=== PATIENT | male | born 1970 | race Caucasian/White ===

== ENCOUNTER → 2017-11-20 | Outpatient (REF) | payer BC ==
[~2017-11-20] MED LIST: OXYC20TA86 PO; PER PO
== END ==
LOC: ZZSENDIN 15:44
PROVIDERS: ATTEND Physician Assistant
DX: Z02.79 Encounter for issue of other medical certificate (principal)
CPT/HCPCS: 81001

== ENCOUNTER 2018-01-29 19:17 | Emergency (ER) | payer BC ==
[2018-01-29] MEDS ORDERED: LISI-362 PO (19:24)
--- NOTE | 2018-01-29 19:34 | ER Report ---
History and Physical Time Seen By MD: 19:33 Hx. of Stated Complaint: PATIENT GOT HIS RIGHT PINKY FINGER IN A ROPE, AND RIPPED THE TIP OF FINGER ALMOST COMPLETELY OFF. INDEX FINGER IS DEFORMED. HPI/ROS CHIEF COMPLAINT: Right hand injury HISTORY OF PRESENT ILLNESS: This is a 47-year-old male who presents to the emergency department for a right hand injury while roping. Patient states he was roping just prior to arrival his hand got trapped on the saddle horn by the rope and amputated the distal part of his right pinky and what appears to be a dislocated index finger. Pain to the right and middle finger no obvious deformities. The thumb is pain-free. CMS intact. Patient has no other complaints , no nausea, vomiting, diarrhea, aches, chills, chest pain or shortness of breath. Did not hit his head no loss of consciousness. REVIEW OF SYSTEMS: Constitutional: No fever, no chills. Eyes: No discharge. ENT: No sore throat. Cardiovascular: No chest pain, no palpitations. Respiratory: No cough, no shortness of breath. Gastrointestinal: No abdominal pain, no vomiting. Genitourinary: No hematuria. Musculoskeletal: As above. Skin: As above. Neurological: No headache. Allergies: Coded Allergies: No Known Drug Allergies (Verified , 01/29/18) Home Meds Active Scripts Hydrocodone Bit/Acetaminophen (HYDROCODON-ACETAMINOPHEN 5-325) 1 Each Tablet, 1 EACH PO Q4-6H Y for PAIN, #12 TAB 0 Refills Prov:DORIE MCGARRY [facility]- 01/29/18 Cephalexin 500 Mg Tab (KEFLEX 500 MG TAB) 500 Mg Tablet, 500 MG PO Q6H for 10 Days, #38 TAB 0 Refills Prov:DORIE MCGARRY [facility]- 01/29/18 Reported Medications Lisinopril (LISINOPRIL) 10 Mg Tablet, 10 MG PO QDAY, TAB 01/29/18 Discontinued Reported Medications Oxycodone Hcl (Oxycontin) 20 Mg Tab.sr.12h, 20 MG PO BID, #20 This is an extended release pain medication. Take twice a day, 12 hours apart. 02/19/08 Oxycodone/Acetaminophen (OXYCODONE/ACETAMINOPHEN 5MG/325 MG) 5 Mg/325 Mg Tab, 1 - 2 TAB PO Q4-6H 1, #40 This is the faster acting pain medication. Take as needed every 4-6 hours for pain. 02/19/08 Past Medical/Surgical History Patient has a past medical and surgical history of left and right arm fractures , left leg fracture, left hip fracture, shattered right foot, multiple orthopedic surgeries. Reviewed Nurses Notes: Yes Constitutional Vital Sign - Last 24 Hours 01/29/18 19:20 Pulse 78 Resp 16 B/P (MAP) 136/102 Pulse Ox 96 O2 Delivery Room Air Intake and Output 01/29/18 01/29/18 01/30/18 15:00 23:00 07:00 Intake Total 50 ml Balance 50 ml Physical Exam General Appearance: The patient is alert, has no immediate need for airway protection and no signs of toxicity. Eyes: Pupils equal and round no pallor or injection. ENT, Mouth: Mucous membranes are moist. Respiratory: There are no retractions, lungs are clear to auscultation. Cardiovascular: Regular rate and rhythm. Gastrointestinal: Abdomen is soft and non tender, no masses, bowel sounds normal. Neurological: Alert and oriented 4. Moving all extremity. Following all commands. No focal neuro deficits. Skin: Warm and dry, no rashes. Musculoskeletal: Neck is supple non tender. Extremities amputated distal end of the right pinky, with a small flap of tissue hanging from the injury. Bleeding controlled. Deformed right index finger , fixed in place at the PIP angled toward the thumb. Rope gamble to the distal end of the ring and middle fingers. No thumb involvement. Sensation intact to all fingers. DIFFERENTIAL DIAGNOSIS: After history and physical exam differential diagnosis was considered for amputation, dislocation, contusion, abrasion and fracture. Medical Decision Making Data Points Result Diagram: 01/29/18200001/29/182000 Laboratory Hematology Test 01/29/18 20:01 Red Blood Count 5.41 M/uL (4.00-5.60) Mean Corpuscular Volume 88.6 fL (80.0-96.0) Mean Corpuscular Hemoglobin 30.6 pg (26.0-33.0) Mean Corpuscular Hemoglobin Concent 34.5 g/dL (32.0-36.0) Red Cell Distribution Width 14.4 % (11.5-14.5) Mean Platelet Volume 7.2 fL (7.2-11.1) Neutrophils (%) (Auto) 73.6 % (39.4-72.5) Lymphocytes (%) (Auto) 14.6 % (17.6-49.6) Monocytes (%) (Auto) 7.0 % (4.1-12.4) Eosinophils (%) (Auto) 1.9 % (0.4-6.7) Basophils (%) (Auto) 2.9 % (0.3-1.4) Nucleated RBC Relative Count (auto) 0.0 /100WBC Neutrophils # (Auto) 6.6 K/uL (2.0-7.4) Lymphocytes # (Auto) 1.3 K/uL (1.3-3.6) Monocytes # (Auto) 0.6 K/uL (0.3-1.0) Eosinophils # (Auto) 0.2 K/uL (0.0-0.5) Basophils # (Auto) 0.3 K/uL (0.0-0.1) Nucleated RBC Absolute Count (auto) 0.00 K/uL Peripheral Blood Smear Yes Y/N Sodium Level 141 mmol/L (137-145) Potassium Level 4.0 mmol/L (3.5-5.0) Chloride Level 100 mmol/L (98-107) Carbon Dioxide Level 26 mmol/L (22-30) Blood Urea Nitrogen 14 mg/dl (9-21) Creatinine 1.00 mg/dl (0.66-1.25) Glomerular Filtration Rate Calc > 60.0 Random Glucose 95 mg/dl (75-110) Calcium Level 8.9 mg/dl (8.4-10.2) Total Bilirubin 0.4 mg/dl (0.2-1.3) Aspartate Amino Transf (AST/SGOT) 24 U/L (0-35) Alanine Aminotransferase (ALT/SGPT) 45 U/L (0-56) Alkaline Phosphatase 65 U/L (0-126) Total Protein 7.2 g/dl (6.3-8.2) Albumin 4.3 g/dl (3.5-5.0) Chemistry Test 01/29/18 20:01 White Blood Count 8.9 k/uL (4.5-11.0) Red Blood Count 5.41 M/uL (4.00-5.60) Hemoglobin 16.5 g/dL (14.0-18.0) Hematocrit 47.9 % (42.0-52.0) Mean Corpuscular Volume 88.6 fL (80.0-96.0) Mean Corpuscular Hemoglobin 30.6 pg (26.0-33.0) Mean Corpuscular Hemoglobin Concent 34.5 g/dL (32.0-36.0) Red Cell Distribution Width 14.4 % (11.5-14.5) Platelet Count 227 K/uL (150-450) Mean Platelet Volume 7.2 fL (7.2-11.1) Neutrophils (%) (Auto) 73.6 % (39.4-72.5) Lymphocytes (%) (Auto) 14.6 % (17.6-49.6) Monocytes (%) (Auto) 7.0 % (4.1-12.4) Eosinophils (%) (Auto) 1.9 % (0.4-6.7) Basophils (%) (Auto) 2.9 % (0.3-1.4) Nucleated RBC Relative Count (auto) 0.0 /100WBC Neutrophils # (Auto) 6.6 K/uL (2.0-7.4) Lymphocytes # (Auto) 1.3 K/uL (1.3-3.6) Monocytes # (Auto) 0.6 K/uL (0.3-1.0) Eosinophils # (Auto) 0.2 K/uL (0.0-0.5) Basophils # (Auto) 0.3 K/uL (0.0-0.1) Nucleated RBC Absolute Count (auto) 0.00 K/uL Peripheral Blood Smear Yes Y/N Glomerular Filtration Rate Calc > 60.0 Calcium Level 8.9 mg/dl (8.4-10.2) Total Bilirubin 0.4 mg/dl (0.2-1.3) Aspartate Amino Transf (AST/SGOT) 24 U/L (0-35) Alanine Aminotransferase (ALT/SGPT) 45 U/L (0-56) Alkaline Phosphatase 65 U/L (0-126) Total Protein 7.2 g/dl (6.3-8.2) Albumin 4.3 g/dl (3.5-5.0) EKG/Imaging Imaging Location: [facility] - [place] Patient: René Esparza : 1970 Visit/Account:[id number] Date of Sevice: 01/29/2018 INDICATION: hand injury, amputated small finger. DATE: 01/29/2018 8:28 PM. TECHNIQUE: HAND COMPLETE RIGHT COMPARISON: Wrist radiographs February 18, 2008 FINDINGS: An oblique fractures of the second proximal phalanx is comminuted and displaced. A fracture of the distal phalanx of the middle finger is comminuted and displaced with intra-articular extension. Fracture of the distal phalanx of the fifth digit is comminuted and displaced, and the tuft has been avulsed/ amputated. IMPRESSION: 1. Fractures of the second proximal phalanx, third distal phalanx, and fifth distal phalanx as above. Report Dictated By: Mercedes May MD at 01/29/2018 8:28 PM Report E-Signed By: Mercedes May MD at 01/29/2018 8:31 PM WSN:[id number] ED Course/Re-evaluation Clinical Indication for ER IV: IV Access ED Course The patient was admitted to a room. A history physical were obtained. Differential diagnoses were considered. An IV was started. A CBC, CMP were obtained. Lab studies unremarkable. Patient was given 4 mg IV Zofran, 4 mg IV morphine, 1 mg IV Dilaudid with minimal relief. Patient's fingers were digitally blocked using 0.5% bupivacaine with epinephrine. Fractures of the second proximal phalanx, third distal phalanx, and fifth distal phalanx, open and amputated. The patient was given 2gm of ceftriaxone IV. Dr. Choudhury did come in for evaluation, he did irrigate and close the amputated small finger, reduced the index finger fracture and splinted the finger. The patient tolerated well. he was sent home with two take home packs of hydrocodone and zofran as well as Keflex. A hydrocodone and Keflex prescription was sent to the patient's pharmacy. The patient was doing well at the time of discharge. She was instructed to follow-up with Dr. Fermin Thursday or Thursday. Patient was also instructed return to the emergency department for any other concerns or worsening symptoms. Patient had no other questions or concerns at this time and was discharged home. 01/29/2018 8:51:15 pm I did speak with cl Uribe patient relations representative. He did view the images and is coming in to evaluate the patient. 01/29/2018 9:14:[address] Choudhury is here for small finger closure and reduction of the index finger. Decision to Disposition Date: Jan 29, 2018 Decision to Disposition Time: 22:14 Depart Departure Latest Vital Signs Vital Signs Date Time Temp Pulse Resp B/P (MAP) Pulse Ox O2 Delivery O2 Flow Rate FiO2 01/29/18 19:20 78 16 136/102 96 Room Air Impression: Primary Impression: Finger amputation, traumatic Additional Impressions: Fracture of phalanx of index finger Fracture of distal phalanx of finger of left hand Condition: Improved Referrals: COREY CHOU DO (PCP) ANGELY FERMIN MD 2 Days New Scripts Hydrocodone Bit/Acetaminophen (HYDROCODON-ACETAMINOPHEN 5-325) 1 Each Tablet 1 EACH PO Q4-6H Y for PAIN, #12 TAB 0 Refills Prov: DORIE MCGARRY [facility]- 01/29/18 Cephalexin 500 Mg Tab (KEFLEX 500 MG TAB) 500 Mg Tablet 500 MG PO Q6H for 10 Days, #38 TAB 0 Refills Prov: DORIE MCGARRY [facility]- 01/29/18 Patient Instructions: Finger Amputation (ED), Finger Fracture (ED) Additional Instructions: Drink plenty of water. Get plenty of rest. Take Ibuprofen or Tylenol if not taking hydrocodone, do not take Tylenol with the hydrocodone. Take Hydrocodone for severe pain. Take the Keflex 500mg tablets every 6 hours for 10 days. Take Zofran as needed for nausea. Follow up with Dr. Fermin Thursday or Thursday. Keep the splint on until you follow up. Return to the ED for any other concerns or worsening symptoms. Problem Qualifiers Primary Impression: Finger amputation, traumatic Encounter type: initial encounter Qualified Codes: S68.119A - Complete traumatic metacarpophalangeal amputation of unspecified finger, initial encounter Additional Impressions: Fracture of phalanx of index finger Encounter type: initial encounter Fracture type: closed Phalanx: middle Fracture alignment: displaced Laterality: right Qualified Codes: S62.620A - Displaced fracture of middle phalanx of right index finger, initial encounter for closed fracture DORIE MCGARRY [facility] Jan 29, 2018 19:34
[2018-01-29] MEDS ORDERED: DIPHTH/TETANUS/ACEL. PERTUSSIS IM ONLY ONE (19:40)
[2018-01-29] MEDS ORDERED: MORPHINE 4 MG/ML SDV IVP ONE (19:40)
[2018-01-29] MEDS ORDERED: ceFAZolin(*) 2GM/D5W 50ML 50 ML IVPB ONE (19:40)
[2018-01-29] MEDS ORDERED: ONDANSETRON 4 MG/2 ML VIAL IVP ONE (19:40)
[2018-01-29 20:13] LABS: PLATELET COUNT, AUTOMATED 227 K/uL (150-450)
[2018-01-29] MEDS ORDERED: HYDROmorphone* 1 MG/ML 1 MG/ML ML IVP ONE (20:20)
--- NOTE | 2018-01-29 20:34 | RADIOLOGY IMAGING REPORT ---
FACILITY: [facility] PATIENT NAME: René Esparza : 1970 MR: [id number] V: [id number] EXAM DATE: ORDERING PHYSICIAN: DORIE MCGARRY TECHNOLOGIST: Location: [facility] [place] Patient: René Esparza : 1970 Visit/Account:[id number] Date of Sevice: 01/29/2018 INDICATION: hand injury, amputated small finger. DATE: 01/29/2018 8:28 PM. TECHNIQUE: HAND COMPLETE RIGHT COMPARISON: Wrist radiographs February 18, 2008 FINDINGS: An oblique fractures of the second proximal phalanx is comminuted and displaced. A fracture of the distal phalanx of the middle finger is comminuted and displaced with intra-articular extensio n. Fracture of the distal phalanx of the fifth digit is comminuted and displaced, and the tuft has be en avulsed/amputated. IMPRESSION: 1. Fractures of the second proximal phalanx, third distal phalanx, and fifth distal phalanx as above. Report Dictated By: Mercedes May MD at 01/29/2018 8:28 PM Report E-Signed By: Mercedes May MD at 01/29/2018 8:31 PM WSN:[id number]
[2018-01-29] MEDS ORDERED: CEPH500T7 PO ×2 (22:09→22:35)
[2018-01-29] MEDS ORDERED: HYDR-385 PO ×2 (22:09→22:35)
[2018-01-29] MEDS ORDERED: ONDANSETRON 4 MG ODT TH SL ONE (22:15)
[2018-01-29] MEDS ORDERED: ACET/HYDROC 5/325MG TH ER ONLY 2 TAB/BOTTLE PO ONE (22:15)
[2018-01-29] MEDS ORDERED: CEPHALEXIN 500 MG CAP TH 2 CAP/BOTTLE PO ONE (22:15)
[2018-01-29 22:23] VITALS: BP 116/75
--- NOTE | 2018-02-03 13:08 | OPERATIVE REPORT 1 ---
EVENT DATE: January 29, 2018 SURGEON: Vinod Choudhury MD ANESTHESIA: Digital block. INDICATION FOR PROCEDURE René is a very pleasant gent who was roping, caught his hand in one of the ropes, and sustained a fracture of the base of the index finger, a fracture of the tip of the middle finger, and had a complete avulsion of the right fifth distal phalanx. He was seen in the emergency room. DESCRIPTION OF PROCEDURE At that point, we washed his hand out with normal saline, actually soaked it for a good 15-20 minutes. We then cleaned it. A digital block was done, both medial and lateral, of the base of the fifth finger, small finger. Once he was completely numb, we then placed a tourniquet ring on. We then debrided the distal tip of all the skin, and I used a small rongeur to take the bone back just before the DIP joint of the little finger, trying to leave the little finger joint intact. At that point, once it was able to debride the bone, I then washed it again to make suer there was no dirt or any type of gross infection. At that point, I then used the palmar aspect flap back over to the dorsal aspect using a 4-0 nylon in a horizontal stitch manner. Once that was done, we had good coverage of the bone and no tension across the incision. We then covered it up using Xeroform and a soft dressing. At this point, he was referred to Dr. Barrett for fixation of the base of his index finger, since there was considerable displacement. He will follow up on Thursday, not only for his little finger, but for the index finger with Dr. Barrett. [facility]
== END 2018-01-29 22:35 | disposition home or self-care (01) ==
LOC: ER 19:33
DX: S68.116A Complete traumatic metacarpophalangeal amputation of right little finger, initial encounter (principal); S62.620A Displaced fracture of middle phalanx of right index finger, initial encounter for closed fracture
CPT/HCPCS: 11044; 73130; 85025; 90471; 90715; 96365; 96375; 99284; J1170; J2270; J2405; S0119; 82040; 82247; 82310; 82374; 82435; 82565; 82947; 84075; 84132; 84155; 84295; 84450; 84460; 84520; J0690

== ENCOUNTER → 2018-02-02 | Outpatient (CLI) | payer BC ==
[~2018-02-02] MED LIST changes: +CEPH500T7 PO; +HYDR-385 PO; +LISI-362 PO
--- NOTE | 2018-02-02 14:51 | EKG ---
FACILITY: [facility] PATIENT NAME: OLGA LARES : [id number] MR: [id number] V: [id number] EXAM DATE: ORDERING PHYSICIAN: KENZIE RUFFIN TECHNOLOGIST: SOFI Angulo Reason : PRE OP Blood Pressure : / mmHG Vent. Rate : 059 BPM Atrial Rate : 059 BPM P-R Int : 130 ms QRS Dur : 088 ms QT Int : 410 ms P-R-T Axes : 047 022 -09 degrees QTc Int : 405 ms Sinus bradycardia T wave inversion in III and AVF Nonspecific ST findings and T waves are relatively tall Abnormal ECG No previous ECGs available Confirmed by PEPPER MYLES ([id number]) on 02/02/2018 6:21:56 PM Referred By: LALY Confirmed By:PEPPER MYLES
== END ==
LOC: RESP 14:30
PROVIDERS: ATTEND Anesthesiology
DX: Z01.810 Encounter for preprocedural cardiovascular examination (principal); S62.601A Fracture of unspecified phalanx of left index finger, initial encounter for closed fracture; R94.31 Abnormal electrocardiogram [ECG] [EKG]
CPT/HCPCS: 93005